=== PATIENT | female | born 1980 | race Caucasian/White ===

== ENCOUNTER → 2019-10-18 | Outpatient (CLI) | payer BC ==
[2005-08-31 08:31] VITALS: PULSE 70; TEMP 98.4
== END ==
LOC: MC.RAD 10-16 13:00
DX: R92.8 Other abnormal and inconclusive findings on diagnostic imaging of breast (principal); Z80.3 Family history of malignant neoplasm of breast

== ENCOUNTER → 2019-10-25 | Outpatient (CLI) | payer BC ==
[2005-08-31 08:31] VITALS: PULSE 70; TEMP 98.4
== END ==
LOC: MC.RAD 09:51
DX: R92.0 Mammographic microcalcification found on diagnostic imaging of breast (principal)
CPT/HCPCS: 30634

== ENCOUNTER 2020-11-18 14:52 | Outpatient (RCR) | payer OTHER ==
[2005-08-31 08:31] VITALS: PULSE 70; TEMP 98.4
== END 2021-02-16 | disposition home or self-care (01) ==
LOC: WSOH
DX: S80.02XA Contusion of left knee, initial encounter (principal); M17.12 Unilateral primary osteoarthritis, left knee; W01.0XXA Fall on same level from slipping, tripping and stumbling without subsequent striking against object, initial encounter; Y99.0 Civilian activity done for income or pay